=== PATIENT | female | born 1985 | race Caucasian/White ===

== ENCOUNTER 2017-09-08 12:28 | Observation (INO) | payer OTHER ==
[~2017-09-08] VITALS: Ht 162 cm; Wt 71.2 kg
[2017-09-20] MEDS ORDERED: PREN1TAB80 PO (13:34)
[2017-09-20 14:36] VITALS: BP 97/62
== END 2017-09-20 14:20 | disposition home or self-care (01) ==
LOC: 4S 09-20 12:47
PROVIDERS: ADMIT Obstetrics & Gynecology; ATTEND Obstetrics & Gynecology
DX: O23.43 Unspecified infection of urinary tract in pregnancy, third trimester (principal); O48.0 Post-term pregnancy; Z3A.40 40 weeks gestation of pregnancy
CPT/HCPCS: 59025; G0378

== ENCOUNTER 2017-09-23 13:00 | Observation (INO) | payer OTHER ==
[~2017-09-23] VITALS: Ht 30.5 cm; Wt 71.7 kg
[~2017-09-23 13:00] MED LIST: PREN1TAB80 PO
[2017-09-23 14:42] VITALS: BP 102/61
== END 2017-09-23 14:25 | disposition home or self-care (01) ==
LOC: 4S 13:00
PROVIDERS: ADMIT Obstetrics & Gynecology; ATTEND Obstetrics & Gynecology
DX: O34.13 Maternal care for benign tumor of corpus uteri, third trimester (principal); Z3A.39 39 weeks gestation of pregnancy
CPT/HCPCS: 59025; G0378

== ENCOUNTER 2017-09-30 16:50 | Inpatient (IN) | payer OTHER ==
[~2017-09-30] VITALS: Ht 162 cm; Wt 72.1 kg
[2017-09-30] MEDS ORDERED: RINGERS SOLUTION,LACTATED 1,000 ML IV PRN (16:51)
[2017-09-30] MEDS ORDERED: FentaNYL CITRATE-PF 100 MCG/2 ML VIAL IVP PRN (17:00)
[2017-09-30] MEDS ORDERED: CITRIC ACID/SODIUM CITRATE 30 ML SOLUTION UDCUP PO PRN (17:00)
[2017-09-30] MEDS ORDERED: METOCLOPRAMIDE HCL 5 MG/ML 2 ML VIAL IVP PRN (17:00)
[2017-09-30] MEDS ORDERED: METHYLERGONOVINE MALEATE 0.2 MG/ML VIAL IM PRN (17:00)
[2017-09-30] MEDS ORDERED: LIDOCAINE HCL/PF 1% 30 ML VIAL INJ PRN (17:00)
[2017-09-30 17:28] VITALS: BP 102/66
[2017-09-30 17:28] LABS: BASOPHILS % (AUTO) 0.8 % (0.0-2.0); EOSINOPHILS % (AUTO) 0.4 % (1.0-6.0); HEMATOCRIT 37.7 % (36-46); HEMOGLOBIN 12.9 g/dL (12.0-16.0); LYMPHOCYTES # (AUTO) 1.9 K/uL (1.0-4.8); LYMPHOCYTES % (AUTO) 20.3 % (22.0-44.0); MEAN CORPUSCULAR HEMOGLOBIN 27.7 pg (26.0-34.0); MEAN CORPUSCULAR HGB CONC 34.3 G/dL (31.0-37.0); MEAN CORPUSCULAR VOLUME 81 fL (80-100); MONOCYTES # (AUTO) 0.5 K/uL (0.1-1.0); MONOCYTES % (AUTO) 5.8 % (2.0-9.0); NEUTROPHILS # (AUTO) 6.9 K/uL (1.8-7.7); NEUTROPHILS % (AUTO) 72.7 % (40.0-70.0); PLATELET COUNT (AUTO) 228 K/uL (150-450); RED BLOOD CELL COUNT(AUTO) 4.66 MIL/uL (4.00-5.20); RED CELL DISTRIBUTION WIDTH 16.1 % (11.5-14.5)
[2017-09-30] MEDS ORDERED: AMPICILLIN SODIUM 2 GM/NS 100 ML IV ONE (18:00)
[2017-09-30] MEDS ORDERED: DINOPROSTONE 10 MG VAGINAL SUPPOSITORY VG ONE (18:00)
[2017-09-30] MEDS: RINGERS SOLUTION,LACTATED 1,000 ML IV SCH ×2 (18:38→23:14)
[2017-09-30] MEDS: AMPICILLIN SODIUM 1 GM/NS 50 ML IV SCH (23:13)
[2017-09-30] MEDS: OXYGEN THERAPY IH SCH (23:14)
[2017-10-01] MEDS: AMPICILLIN SODIUM 1 GM/NS 50 ML IV SCH ×6 (03:56→23:32)
[2017-10-01] MEDS ORDERED: MISOPROSTOL 25 MCG TABLET VG SCH (08:00)
[2017-10-01] MEDS: RINGERS SOLUTION,LACTATED 1,000 ML IV SCH ×2 (08:22→11:45)
[2017-10-01] MEDS ORDERED: OXYTOCIN 30 UNITS/LACT RINGERS 500 ML IV PRN (13:34)
[2017-10-01] MEDS ORDERED: ROPIVACAINE HCL/PF 0.2% 100 ML ED ONE (16:41)
[2017-10-01] MEDS ORDERED: DiphenhydrAMINE HCL 50 MG/ML VIAL IVP PRN (17:45)
[2017-10-01] MEDS ORDERED: ONDANSETRON HCL 4 MG/2 ML VIAL IVP PRN (17:45)
[2017-10-01] MEDS ORDERED: ROPIVACAINE HCL/PF 0.2% 100 ML ED PRN (17:45)
[2017-10-01] MEDS: OXYGEN THERAPY IH SCH (20:30)
[2017-10-02] MEDS ORDERED: ROPIVACAINE HCL/PF 0.2% 100 ML ED ONE (00:41)
[2017-10-02] MEDS: AMPICILLIN SODIUM 1 GM/NS 50 ML IV SCH (03:28)
[2017-10-02] MEDS: RINGERS SOLUTION,LACTATED 1,000 ML IV SCH (03:29)
[2017-10-02] MEDS ORDERED: GLYCERIN/WITCH HAZEL LEAF 40 PADS JAR TP PRN (08:30)
[2017-10-02] MEDS ORDERED: BENZOCAINE 20%/MENTHOL 56 GM SPRAY CANISTER TP PRN (08:30)
[2017-10-02] MEDS ORDERED: LANOLIN 7 GM OINTMENT TP PRN (08:30)
[2017-10-02] MEDS ORDERED: ACETAMINOPHEN/CODEINE 300-30 MG TABLET PO PRN (08:30)
[2017-10-02] MEDS: IBUPROFEN 800 MG TABLET PO SCH ×3 (10:32→22:09)
[2017-10-02] MEDS: MAGNESIUM HYDROXIDE SUSPENSION 30 ML UDCUP PO SCH ×2 (10:35→21:31)
[2017-10-02] MEDS ORDERED: AMMONIA 1 EA AMP IH ONE (12:43)
[2017-10-02] MEDS: ACETAMINOPHEN/CODEINE 300-30 MG TABLET PO PRN (18:24)
[2017-10-03] MEDS: ACETAMINOPHEN/CODEINE 300-30 MG TABLET PO PRN (03:54)
[2017-10-03] MEDS: IBUPROFEN 800 MG TABLET PO SCH (05:01)
[2017-10-03] MEDS ORDERED: IBUP-2071 PO (10:36)
[2017-10-03] MEDS ORDERED: SENNA/DOCUSATE SODIUM 187-50 MG TABLET PO ONE (11:00)
== END 2017-10-03 11:15 | disposition home or self-care (01) | DRG 775 ==
LOC: OBSVTOIN 16:50 → 4S 16:50
PROVIDERS: ADMIT Obstetrics & Gynecology; ATTEND Obstetrics & Gynecology
PROC: 10E0XZZ Delivery of Products of Conception, External Approach (ICD-10-PCS; principal; 2017-10-02)
PROC: 10907ZC Drainage of Amniotic Fluid, Therapeutic from Products of Conception, Via Natural or Artificial Opening (ICD-10-PCS; 2017-10-02)
PROC: 0W8NXZZ Division of Female Perineum, External Approach (ICD-10-PCS; 2017-10-02)
PROC: 3E0R3BZ Introduction of Anesthetic Agent into Spinal Canal, Percutaneous Approach (ICD-10-PCS; 2017-10-02)
PROC: 00HU33Z Insertion of Infusion Device into Spinal Canal, Percutaneous Approach (ICD-10-PCS; 2017-10-02)
DX: O80 Encounter for full-term uncomplicated delivery (principal); Z37.0 Single live birth; Z3A.40 40 weeks gestation of pregnancy
CPT/HCPCS: 86850; 86900; 86901; J0290; J2590; J2795; J7120